=== PATIENT | female | born 1970 | race Caucasian/White ===

== ENCOUNTER 2016-11-13 08:58 | Outpatient (CLI) | payer OTHER | END 2016-11-13 21:01 | disposition home or self-care (01) | LOC: SMI 08:58 | PROVIDERS: ATTEND Psychiatry & Neurology Neurology | DX: D49.6 Neoplasm of unspecified behavior of brain (principal); R50.9 Fever, unspecified; D64.9 Anemia, unspecified | CPT/HCPCS: 70553; A9579 ==